=== PATIENT | female | born 1985 | race Caucasian/White ===

== ENCOUNTER 2019-06-08 10:29 | Emergency (ER) | payer OTHER ==
[~2019-06-08] VITALS: Ht 162.6 cm; Wt 79.4 kg
[~2019-06-08 10:29] MED LIST: ERY-TAB500 MG PO; FOLIC + B12 TAB1 TAB; MOTRIN600 MG PO; PRENATAL1 TAB; TRIPLE ANTIBIOT15 GM TP
== END 2019-06-08 14:30 | disposition home or self-care (01) ==
LOC: ER
DX: K52.9 Noninfective gastroenteritis and colitis, unspecified (principal)

== ENCOUNTER 2021-06-08 20:50 | Emergency (ER) | payer OTHER ==
[~2021-06-08] VITALS: Ht 162.6 cm; Wt 63.5 kg
== END 2021-06-08 23:20 | disposition home or self-care (01) ==
LOC: ER 20:50
DX: R19.7 Diarrhea, unspecified (principal)

== ENCOUNTER 2021-11-18 11:32 | Emergency (ER) | payer OTHER ==
[~2021-11-18] VITALS: Ht 162.6 cm; Wt 63.5 kg
[2021-11-18] MEDS ORDERED: MEDROLPACK PO (14:25)
[2021-11-18] MEDS ORDERED: ZITHROMAX500 MG PO (14:25)
== END 2021-11-18 14:47 | disposition home or self-care (01) ==
LOC: ER 11:32
DX: J06.9 Acute upper respiratory infection, unspecified (principal); R50.9 Fever, unspecified; Z20.822 Contact with and (suspected) exposure to COVID-19

== ENCOUNTER 2021-12-23 16:29 | Emergency (ER) | payer OTHER ==
[~2021-12-23] VITALS: Ht 160 cm; Wt 63.5 kg
[~2021-12-23 16:29] MED LIST changes: +MEDROLPACK PO; +ZITHROMAX500 MG PO
== END 2021-12-23 19:38 | disposition home or self-care (01) ==
LOC: ER 16:29
DX: U07.1 COVID-19 (principal); J10.1 Influenza due to other identified influenza virus with other respiratory manifestations

== ENCOUNTER 2022-12-08 05:38 | Emergency (ER) | payer OTHER ==
[~2022-12-08] VITALS: Ht 162.6 cm; Wt 63.5 kg
== END 2022-12-08 09:04 | disposition home or self-care (01) ==
LOC: ER
DX: F41.9 Anxiety disorder, unspecified (principal)

== ENCOUNTER 2023-04-01 13:07 | Emergency (ER) | payer OTHER ==
[~2023-04-01] VITALS: Ht 162.6 cm; Wt 65.8 kg
[2023-04-01 18:03] LABS: HEMATOCRIT 37.1 % (36.0-45.00); HEMOGLOBIN 12.3 g/dL (12.0-15.00); MEAN CELL VOLUME 94.8 fL (80.00-100.00); MEAN CORPUSCULAR HEMOGLOBIN 31.5 pg (27.00-32.0); MEAN CORPUSCULAR HGB CONC 33.2 g/dl (32.0-36.0); PLATELET COUNT 306 K/uL (150-450); RED BLOOD COUNT 3.91 M/uL (4.00-6.00); RED CELL DISTRIBUTION WIDTH 12.8 % (11.5-14.5)
[2023-04-01] MEDS ORDERED: NASAL MIST126 ML NASAL (18:46)
[2023-04-01] MEDS ORDERED: OSEL75CA PO (18:46)
[2023-04-01] MEDS ORDERED: MUCINEX DM ER1 EACH PO (18:46)
== END 2023-04-01 18:57 | disposition home or self-care (01) ==
LOC: ER 13:07
PROVIDERS: General Practice
DX: J10.1 Influenza due to other identified influenza virus with other respiratory manifestations (principal)

== ENCOUNTER 2023-06-22 18:41 | Emergency (ER) | payer OTHER ==
[~2023-06-22] VITALS: Ht 162.6 cm; Wt 63.5 kg
[~2023-06-22 18:41] MED LIST changes: +MUCINEX DM ER1 EACH PO; +NASAL MIST126 ML NASAL; +OSEL75CA PO
== END 2023-06-22 20:20 | disposition home or self-care (01) ==
LOC: ER 18:41
DX: L30.9 Dermatitis, unspecified (principal); R21 Rash and other nonspecific skin eruption

== ENCOUNTER 2023-06-30 17:11 | Emergency (ER) | payer OTHER ==
[~2023-06-30] VITALS: Ht 162.6 cm; Wt 63.5 kg
[2023-06-30 20:21] LABS: HEMOGLOBIN 12.3 g/dL (12.0-15.00); MEAN CELL VOLUME 92.7 fL (80.00-100.00); MEAN CORPUSCULAR HEMOGLOBIN 32.7 pg (27.00-32.0); MEAN CORPUSCULAR HGB CONC 35.2 g/dl (32.0-36.0); PLATELET COUNT 326 K/uL (150-450); RED BLOOD COUNT 3.78 M/uL (4.00-6.00); RED CELL DISTRIBUTION WIDTH 12.8 % (11.5-14.5)
[2023-06-30 20:53] LABS: PH,URINE 6.5 (5.0-8.0); URINE APPEARANCE Clear; URINE BILIRRUBIN Negative (NEGATIVE); URINE BLOOD Negative; URINE COLOR Yellow; URINE GLUCOSE Negative (NEGATIVE); URINE LEUKOCYTE Negative; URINE NITRATE Negative; URINE PROTEIN Negative (NEGATIVE); URINE UROBILINOGEN 0.2 E.U./dl
[2023-06-30 20:56] LABS: URINE EPITHELIAL CELLS 63.5 uL (0.0-38.8); URINE WBC 13.4 uL (0.0-23.2)
[2023-06-30 20:58] LABS: URINE RBC 1.2 uL (0.0-20.8)
== END 2023-06-30 22:51 | disposition home or self-care (01) ==
LOC: ER 17:11
PROVIDERS: General Practice
DX: U07.1 COVID-19 (principal)